=== PATIENT | male | born 1980 | race Caucasian/White ===

== ENCOUNTER 2024-04-28 15:52 | Emergency (ER) | payer OTHER ==
[2024-04-28 16:16] VITALS: TEMP 98.4
--- NOTE | 2024-04-28 16:28 | ED ---
General Adult HPI - General Source: patient, RN notes reviewed Mode of arrival: ambulatory Limitations: no limitations <Denise Crabtree - Last Filed: 04/28/24 16:26> - General Source: patient, RN notes reviewed Mode of arrival: ambulatory Limitations: no limitations <Sushant Mckeon - Last Filed: 04/28/24 21:50> - General Chief complaint: Abdominal Pain Stated complaint: Abd pain Time Seen by Provider: 04/28/24 16:20 - History of Present Illness Initial comments: Quick note: 43-year-old male presents to the emergency department for evaluation of abdominal pain and distention x 2 weeks. He denies fever, chills. Reports nausea without vomiting. Admits to normal bowel movements. (Denise Crabtree) Patient is a 43-year-old male present to the emergency department with concerns for abdominal discomfort. Symptoms have been present for the past couple weeks. Patient does have some nausea. No vomiting. No constipation or diarrhea. No history of similar symptoms previously. Discomfort is mostly upper abdomen. Patient states he used to drink heavily however now only drinks around 3 times per week. Patient denies any history of liver disease (Sushant Mckeon) - Related Data Allergies Allergy/AdvReac Type Severity Reaction Status Date / Time No Known Allergies Allergy Verified 04/28/24 16:15 Review of Systems ROS Other: All systems not noted in ROS Statement are negative. <Denise Crabtree - Last Filed: 04/28/24 16:26> ROS Other: All systems not noted in ROS Statement are negative. Constitutional: Denies: fever Eyes: Denies: eye pain ENT: Denies: ear pain Respiratory: Denies: dyspnea Endocrine: Denies: fatigue Gastrointestinal: Reports: as per HPI, abdominal pain, nausea. Denies: vomiting Musculoskeletal: Denies: back pain <Sushant Mckeon - Last Filed: 04/28/24 21:50> ROS Statement: Those systems with pertinent positive or pertinent negative responses have been documented in the HPI. Past Medical History Past Medical History: No Reported History History of Any Multi-Drug Resistant Organisms: None Reported Past Surgical History: Hernia Repair Past Psychological History: No Psychological Hx Reported Smoking Status: Current every day smoker Past Alcohol Use History: Heavy Past Drug Use History: None Reported <Denise Crabtree - Last Filed: 04/28/24 16:26> General Exam Limitations: no limitations <Denise Crabtree - Last Filed: 04/28/24 16:26> Limitations: no limitations General appearance: alert, in no apparent distress Head exam: Present: normocephalic Eye exam: Present: scleral icterus Neck exam: Present: normal inspection Respiratory exam: Present: normal lung sounds bilaterally Cardiovascular Exam: Present: regular rate, normal rhythm GI/Abdominal exam: Present: soft, distended (Minimally distended), tenderness (Mild upper abdomen), normal bowel sounds. Absent: guarding, rebound, rigid, pulsatile mass Extremities exam: Present: normal inspection Neurological exam: Present: alert Psychiatric exam: Present: normal affect, normal mood Skin exam: Present: other (Mild jaundice appearance) <Sushant Mckeon - Last Filed: 04/28/24 21:50> - General Exam Comments Initial Comments: Visual Physical Exam Vital signs reviewed General: Well-appearing, nontoxic, no acute distress. Head: Normocephalic, atraumatic Eyes: PERRLA, EOMI ENT: Airway patent Chest: Nonlabored breathing Skin: No visual rash, normal skin tone Neuro: Alert and oriented 3 Musculoskeletal: No gross abnormalities (Denise Crabtree) Course Vital Signs 04/28/24 16:14 Temperature 98.4 F Pulse Rate 113 H Respiratory 20 Rate Blood Pressure 103/62 O2 Sat by Pulse 99 Oximetry Medical Decision Making <Denise Crabtree - Last Filed: 04/28/24 16:26> - Lab Data Result diagrams: 04/28/24 18:38 04/28/24 18:38 <Sushant Mckeon - Last Filed: 04/28/24 21:50> - Medical Decision Making Quick note preformed and electronically signed by Denise Crabtree PA-C (Denise Crabtree) Was pt. sent in by a medical professional or institution ([facility], [employer] PRINT OPERATOR, urgent care, hospital, or [facility]...) When possible be specific @ -No Did you speak to anyone other than the patient for history (EMS, parent, family, police, friend...)? What history was obtained from this source @ -No Did you review nursing and triage notes (agree or disagree)? Why? @ -I reviewed and agree with nursing and triage notes Were old charts reviewed (outside hosp., previous admission, EMS record, old EKG, old radiological studies, urgent care reports/EKG's, [facility] records)? Report findings @ -No old charts are available Differential Diagnosis (chest pain, altered mental status, abdominal pain women, abdominal pain men, vaginal bleeding, weakness, fever, dyspnea, syncope, headac he, dizziness, GI bleed, back pain, seizure, CVA, palpatations, mental health, musculoskeletal)? @ -Differential Abdominal Pain Men: Appendicitis, cholecystitis, diverticulosis, ischemic bowel, pancreatitis, hepatitis, UTI, gastroenteritis, AAA, incarcerated hernia, bowel obstruction, constipation, inflammatory bowel, hepatitis, peptic ulcer disease, splenic infarction, perforated viscus, testicular torsion, this is not meant to be an all-inclusive list EKG interpreted by me (3pts min.). @ -As above X-rays interpreted by me (1pt min.). @ -None done CT interpreted by me (1pt min.). @ -CT scan of the abdomen shows fatty liver and mild ascites U/S interpreted by me (1pt. min.). @ -None done What testing was considered but not performed or refused? (CT, X-rays, U/S, labs)? Why? @ -None What meds were considered but not given or refused? Why? @ -None Did you discuss the management of the patient with other professionals (professionals i.e. , PA, INSTANT PRINT OPERATOR, lab, RT, psych nurse, social work specialist, mineral industry teacher, teacher, mounted police officer, spring encaser)? Give summary @ -Case was discussed with Dr. Rollins who does recommend transfer secondary to no GI available. Case also discussed with Dr. Alcantar at [facility] who will accept transfer Was smoking cessation discussed for >3mins.? @ -No Was critical care preformed (if so, how long)? @ -No Were there social determinants of health that impacted care today? How? (Homelessness, low income, unemployed, alcoholism, drug addiction, transportat ion, low edu. Level, literacy, decrease access to med. care, [facility], rehab)? @ -History of alcohol use Was there de-escalation of care discussed even if they declined (Discuss DNR or withdrawal of care, Hospice)? DNR status @ -No What co-morbidities impacted this encounter? (DM, HTN, Smoking, COPD, CAD, Cancer, CVA, ARF, Chemo, Hep., AIDS, mental health diagnosis, sleep apnea, morbid obesity)? @ -None Was patient admitted / discharged? Hospital course, mention meds given and route, prescriptions, significant lab abnormalities, going to OR and other pertinent info. @ -Patient presents with abdominal discomfort and mild ascites and jaundice. Patient denies any history of liver disease. Patient has mild pancreatitis and transaminitis, likely alcohol related. Patient be transferred for GI care. CM replaced Undiagnosed new problem with uncertain prognosis? @ -No Drug Therapy requiring intensive monitoring for toxicity (Heparin, Nitro, Insulin, Cardizem)? @ -No Were any procedures done? @ -No Diagnosis/symptom? @ -Pancreatitis, transaminitis Acute, or Chronic, or Acute on Chronic? @ -Acute, acute Uncomplicated (without systemic symptoms) or Complicated (systemic symptoms)? @ -Default Side effects of treatment? @ -No Exacerbation, Progression, or Severe Exacerbation? @ -No Poses a threat to life or bodily function? How? (Chest pain, [place], [place], pneumonia, PE, COPD, DKA, ARF, appy, cholecystitis, CVA, Diverticulitis, Homicidal, Suicidal, threat to staff... and all critical care pts) @ -2 liver function (Sushant Mckeon) - Lab Data Lab Results 04/28/24 04/28/24 04/28/24 Range/Units 18:38 18:38 18:38 WBC 7.6 (3.8-10.6) k/uL RBC 3.81 L (4.30-5.90) m/uL Hgb 13.3 (13.0-17.5) gm/dL Hct 40.8 (39.0-53.0) % MCV 107.2 H (80.0-100.0) fL MCH 34.9 (25.0-35.0) pg MCHC 32.6 (31.0-37.0) g/dL RDW 14.3 (11.5-15.5) % Plt Count 239 (150-450) k/uL MPV 7.7 Neutrophils % 79 % Lymphocytes % 11 % Monocytes % 8 % Eosinophils % 1 % Basophils % 0 % Neutrophils # 6.0 (1.3-7.7) k/uL Lymphocytes # 0.8 L (1.0-4.8) k/uL Monocytes # 0.6 (0-1.0) k/uL Eosinophils # 0.1 (0-0.7) k/uL Basophils # 0.0 (0-0.2) k/uL Macrocytosis Moderate Sodium 130 L (137-145) mmol/L Potassium 3.0 L (3.5-5.1) mmol/L Chloride 96 L (98-107) mmol/L Carbon Dioxide 25 (22-30) mmol/L Anion Gap 9 mmol/L BUN 30 H (9-20) mg/dL Creatinine 1.73 H (0.66-1.25) mg/dL Est GFR (CKD-EPI)AfAm 54 (>60 ml/min/1.73 sqM) Est GFR (CKD-EPI)NonAf 47 (>60 ml/min/1.73 sqM) Glucose 94 (74-99) mg/dL Lactic Ac Sepsis Rflx Plasma Lactic Acid Cruz 2.7 H* (0.7-2.0) mmol/L Calcium 8.5 (8.4-10.2) mg/dL Total Bilirubin 12.6 H (0.2-1.3) mg/dL AST 163 H (17-59) U/L ALT 48 (4-49) U/L Alkaline Phosphatase 208 H (38-126) U/L Total Protein 6.3 (6.3-8.2) g/dL Albumin 3.2 L (3.5-5.0) g/dL Amylase 54 (30-110) U/L Lipase 558 H (23-300) U/L 04/28/24 Range/Units 19:14 WBC (3.8-10.6) k/uL RBC (4.30-5.90) m/uL Hgb (13.0-17.5) gm/dL Hct (39.0-53.0) % MCV (80.0-100.0) fL MCH (25.0-35.0) pg MCHC (31.0-37.0) g/dL RDW (11.5-15.5) % Plt Count (150-450) k/uL MPV Neutrophils % % Lymphocytes % % Monocytes % % Eosinophils % % Basophils % % Neutrophils # (1.3-7.7) k/uL Lymphocytes # (1.0-4.8) k/uL Monocytes # (0-1.0) k/uL Eosinophils # (0-0.7) k/uL Basophils # (0-0.2) k/uL Macrocytosis Sodium (137-145) mmol/L Potassium (3.5-5.1) mmol/L Chloride (98-107) mmol/L Carbon Dioxide (22-30) mmol/L Anion Gap mmol/L BUN (9-20) mg/dL Creatinine (0.66-1.25) mg/dL Est GFR (CKD-EPI)AfAm (>60 ml/min/1.73 sqM) Est GFR (CKD-EPI)NonAf (>60 ml/min/1.73 sqM) Glucose (74-99) mg/dL Lactic Ac Sepsis Rflx Y Plasma Lactic Acid Cruz (0.7-2.0) mmol/L Calcium (8.4-10.2) mg/dL Total Bilirubin (0.2-1.3) mg/dL AST (17-59) U/L ALT (4-49) U/L Alkaline Phosphatase (38-126) U/L Total Protein (6.3-8.2) g/dL Albumin (3.5-5.0) g/dL Amylase (30-110) U/L Lipase (23-300) U/L Disposition <Denise Crabtree - Last Filed: 04/28/24 16:26> Is patient prescribed a controlled substance at d/c from ED?: No Time of Disposition: 21:49 - Out of Hospital Transfer - Req. Specs Out of Hospital Transfer - Requested Specifics: Other Emergency Center <Sushant Mckeon - Last Filed: 04/28/24 21:50> Clinical Impression: Pancreatitis, Transaminitis Disposition: OTHER INSTITUTION NOT DEFINED Condition: Serious Referrals: Nonstaff,Physician [Primary Care Provider] - 1-2 days
[2024-04-28 18:57] LABS: Basophils % (A) 0 %; Eosinophils # (A) 0.1 k/uL (0-0.7); Eosinophils % (A) 1 %; HCT 40.8 % (39.0-53.0); HGB 13.3 gm/dL (13.0-17.5); Lymphocytes # (A) 0.8 k/uL (1.0-4.8); Lymphocytes % (A) 11 %; MCH 34.9 pg (25.0-35.0); MCHC 32.6 g/dL (31.0-37.0); MCV 107.2 fL (80.0-100.0); Macrocytosis Moderate; Mean Platelet Volume 7.7; Monocytes # (A) 0.6 k/uL (0-1.0); Monocytes % (A) 8 %; Neutrophils % (A) 79 %; Platelet Count 239 k/uL (150-450); RBC 3.81 m/uL (4.30-5.90); RDW 14.3 % (11.5-15.5); WBC 7.6 k/uL (3.8-10.6)
[2024-04-28 19:08] LABS: ALT 48 U/L (4-49); AST 163 U/L (17-59); African American GFR (CKD) 54 (>60 ml/min/1.73 sqM); Albumin 3.2 g/dL (3.5-5.0); Alkaline Phosphatase 208 U/L (38-126); Amylase 54 U/L (30-110); Anion Gap 9 mmol/L; Blood Urea Nitrogen 30 mg/dL (9-20); Calcium 8.5 mg/dL (8.4-10.2); Carbon Dioxide 25 mmol/L (22-30); Chloride 96 mmol/L (98-107); Glucose 94 mg/dL (74-99); Lipase 558 U/L (23-300); Non-African American GFR(CKD) 47 (>60 ml/min/1.73 sqM); Sodium 130 mmol/L (137-145); Total Bilirubin 12.6 mg/dL (0.2-1.3); Total Protein 6.3 g/dL (6.3-8.2)
[2024-04-28] MEDS: FAMOTIDINE 20 MG/2 ML VIAL IV STA (19:22)
[2024-04-28] MEDS: MORPHINE SULFATE 4 MG/ML SYRINGE IVP STA (19:22)
[2024-04-28] MEDS: ONDANSETRON 4 MG/2 ML VIAL IVP STA (19:22)
--- NOTE | 2024-04-28 19:38 | CT ---
EXAMINATION TYPE: CT abdomen pelvis w con DATE OF EXAM: 04/28/2024 COMPARISON: None HISTORY: abd pain CT DLP: 860.3 mGycm Automated exposure control for dose reduction was used. TECHNIQUE: Helical acquisition of images was performed from the lung bases through the pelvis. CONTRAST: Performed without Oral Contrast and with IV Contrast, patient injected with 100 ml mL of Isovue 300. Findings: The lungs are clear. Gallbladder is normal and there is no gallstone, wall thickening, pericholecystic fluid or distention . There is no biliary ductal dilatation. There is marked hepatomegaly and there is heterogeneous density throughout the liver suggestive of pa rtial fatty infiltration. The spleen, pancreas and renal glands are normal. There are no renal calcifications or hydronephrosis. The caliber of the abdominal aorta is normal and there is no retroperitoneal adenopathy or hemorrhage . The bowel loops are normal in caliber is no evidence of obstruction. No inflammatory changes are iden tified in the mesentery. There is no free intraperitoneal air but there is mild ascites throughout the abdomen and pelvis. There is no pelvic mass, free fluid, abscess or adenopathy. The osseous structures and soft tissues are unremarkable. IMPRESSION: 1. Marked hepatomegaly with patchy heterogeneous parenchymal density suggestive of partial fatty infi ltration. 2. Mild ascites throughout the abdomen and pelvis
[2024-04-28] MEDS: POTASSIUM CHLORIDE ER 20 MEQ TAB.ER PO STA (22:03)
[2024-04-28] MEDS: POTASSIUM CHLORIDE 10 MEQ in WATER FOR INJECTION 1 100ML.BAG IVPB STA (22:05)
[2024-04-28 22:26] VITALS: BP 113/70; PULSE 95; RESP 18
== END 2024-04-29 03:40 | disposition other institution (70) ==
LOC: EC 15:52
DX: K85.90 Acute pancreatitis without necrosis or infection, unspecified (principal); E87.6 Hypokalemia; K76.0 Fatty (change of) liver, not elsewhere classified; R18.8 Other ascites; F17.200 Nicotine dependence, unspecified, uncomplicated
CPT/HCPCS: 99285; 96365; 96366; 96375 ×3; 36415; 80053; 82150; 83605; 83690; 85025; 74177; J2270; J2405; J3490; J3480; Q9967